=== PATIENT | male | born 1995 | race Caucasian/White ===

== ENCOUNTER 2020-02-26 02:05 | Emergency (ER) | payer BC, MEDICAID ==
[~2020-02-26] VITALS: Ht 182.9 cm; Wt 173.6 kg
--- NOTE | 2020-02-26 03:14 | NUR ---
FRANSISCO AT BS FOR SPLINT PLACEMENT.
[2020-02-26] MEDS ORDERED: IBUPROFEN 600 MG TABLET PO ONE (04:00)
[2020-02-26] MEDS ORDERED: IBUPROFEN 600 MG TABLET ONE (04:07)
[2020-02-26 04:11] VITALS: BP 157/90
--- NOTE | 2020-02-26 04:12 | NUR ---
PT. MEDICATED PER MAR. UPDATED ON PLAN FOR D/C. VS UPDATED.
== END 2020-02-26 04:49 | disposition home or self-care (01) ==
LOC: ED 02:30
DX: S62.512A Displaced fracture of proximal phalanx of left thumb, initial encounter for closed fracture (principal); W20.8XXA Other cause of strike by thrown, projected or falling object, initial encounter; Y93.89 Activity, other specified; Y92.098 Other place in other non-institutional residence as the place of occurrence of the external cause; Y99.8 Other external cause status
CPT/HCPCS: 29125; 99283

== ENCOUNTER 2020-03-01 18:17 | Emergency (ER) | payer BC ==
[~2020-03-01] VITALS: Ht 182.9 cm; Wt 178.0 kg
[2020-03-01 18:41] VITALS: BP 133/82
--- NOTE | 2020-03-01 19:11 | NUR ---
THIS TECH ROOMED PT
[2020-03-01] MEDS ORDERED: OXYcodone IR 5MG TABLET PO PRN (20:00)
[2020-03-01] MEDS ORDERED: OXYcodone IR 5MG TABLET ONE (20:08)
--- NOTE | 2020-03-01 20:16 | NUR ---
RN to bedside, patient provided with analgesic medication. Patient resting comfortably, awaiting splinting by emerency department research laboratory technician.
--- NOTE | 2020-03-01 20:25 | NUR ---
Emergency department sample prep technician at bedside. Awaiting discharge.
== END 2020-03-01 20:53 | disposition home or self-care (01) ==
LOC: ED 19:19
DX: S62.515A Nondisplaced fracture of proximal phalanx of left thumb, initial encounter for closed fracture (principal); X58.XXXA Exposure to other specified factors, initial encounter; Y93.89 Activity, other specified; Y92.410 Unspecified street and highway as the place of occurrence of the external cause; Y99.8 Other external cause status
CPT/HCPCS: 29125; 99283

== ENCOUNTER 2020-05-30 10:29 | Emergency (ER) | payer BC ==
[~2020-05-30] VITALS: Ht 182.9 cm; Wt 177.5 kg
[2020-05-30] MEDS ORDERED: METHOCARBAMOL 750 MG TABLET ONE (11:20)
[2020-05-30] MEDS ORDERED: KETOROLAC 30 MG/1 ML ONE (11:20)
--- NOTE | 2020-05-30 11:29 | NUR ---
PT MEDICATED PER ORDERS FOR PAIN.
[2020-05-30] MEDS ORDERED: KETOROLAC 30 MG/1 ML IM ONE (11:30)
[2020-05-30] MEDS ORDERED: METHOCARBAMOL 750 MG TABLET PO ONE (11:30)
--- NOTE | 2020-05-30 12:02 | NUR ---
PT TO IMAGING.
[2020-05-30 12:45] VITALS: BP 126/55
== END 2020-05-30 12:48 | disposition home or self-care (01) ==
LOC: ED 12:28
DX: M25.511 Pain in right shoulder (principal); M54.12 Radiculopathy, cervical region
CPT/HCPCS: 72050; 73030; 96372; 99284; J1885

== ENCOUNTER 2020-06-23 14:36 | Emergency (ER) | payer BC ==
[~2020-06-23] VITALS: Ht 182.9 cm; Wt 177.7 kg
[2020-06-23] MEDS ORDERED: KETOROLAC 30 MG/1 ML IM ONE (15:30)
[2020-06-23] MEDS ORDERED: KETOROLAC 30 MG/1 ML ONE (16:04)
[2020-06-23 16:23] VITALS: BP 132/79
== END 2020-06-23 16:44 | disposition home or self-care (01) ==
LOC: ED 15:47
DX: R07.89 Other chest pain (principal); I44.0 Atrioventricular block, first degree; R00.0 Tachycardia, unspecified
CPT/HCPCS: 71046; 93005; 96372; 99283; J1885; 99284

== ENCOUNTER 2020-07-16 16:35 | Emergency (ER) | payer BC ==
[~2020-07-16] VITALS: Ht 182.9 cm; Wt 179.1 kg
[2020-07-16 18:28] VITALS: BP 127/74
== END 2020-07-16 18:30 | disposition home or self-care (01) ==
LOC: ED 18:07
DX: S50.01XA Contusion of right elbow, initial encounter (principal); W11.XXXA Fall on and from ladder, initial encounter; Y93.89 Activity, other specified; Y92.098 Other place in other non-institutional residence as the place of occurrence of the external cause; Y99.8 Other external cause status
CPT/HCPCS: 99283